=== PATIENT | male | born 1990 | race American Indian/Alaskan Native ===

== ENCOUNTER 2021-04-30 16:20 | Emergency (ER) | payer SELFPAY ==
[2021-04-30 16:46] VITALS: BP 171/102
[2021-04-30] MEDS ORDERED: LIDOCAINE-MPF (1%) 10 MG/1 ML VIAL 5 ML INFILTRATI SCH (17:00)
--- NOTE | 2021-04-30 17:07 | Emergency Department Report ---
ED Male HPI - General Chief complaint: Urogenital-Male Stated complaint: BURNING Time Seen by Provider: 04/30/21 16:55 Source: patient Mode of arrival: Ambulatory Limitations: No Limitations - History of Present Illness Initial comments: pt is a 31-year-old male presents emergency room with dysuria that began a week ago. He states he has some mild low back discomfort. He states he was sexually active and reports at this time he did not use protection. He denies any penile discharge, abdominal pain, nausea, vomiting, diarrhea, urinary frequency, hematuria, urinary retention. No past medical history. no allergies medications. - Related Data Previous Rx's Medication Instructions Recorded Last Taken Type Doxycycline Hyclate [Doxycycline 100 mg PO BID 7 Days #14 tab 04/30/21 Unknown Rx Hyclate TAB] Allergies Allergy/AdvReac Type Severity Reaction Status Date / Time No Known Allergies Allergy Unverified 04/30/21 17:06 ED Review of Systems ROS: Stated complaint: BURNING Other details as noted in HPI Comment: All other systems reviewed and negative ED Past Medical Hx - Past Medical History Previous Medical History?: No - Surgical History Past Surgical History?: No - Medications Home Medications: Home Medications Medication Instructions Recorded Confirmed Last Taken Type Doxycycline Hyclate [Doxycycline 100 mg PO BID 7 Days #14 tab 04/30/21 Unknown Rx Hyclate TAB] ED Physical Exam - General Limitations: No Limitations General appearance: alert, in no apparent distress - Head Head exam: Present: atraumatic, normocephalic - Eye Eye exam: Present: normal appearance - ENT ENT exam: Present: mucous membranes moist - Respiratory Respiratory exam: Present: normal lung sounds bilaterally. Absent: respiratory distress, wheezes, rales, rhonchi, stridor, chest wall tenderness, accessory muscle use, decreased breath sounds, prolonged expiratory - Cardiovascular Cardiovascular Exam: Present: regular rate, normal rhythm, normal heart sounds. Absent: systolic murmur, diastolic murmur, rubs, gallop - GI/Abdominal GI/Abdominal exam: Present: soft, normal bowel sounds. Absent: distended, tenderness, rebound, rigid - Neurological Exam Neurological exam: Present: alert, oriented X3 - Psychiatric Psychiatric exam: Present: normal affect, normal mood - Skin Skin exam: Present: warm, dry, intact ED Course Vital Signs 04/30/21 04/30/21 16:21 17:34 Temperature 98.9 F 98.6 F Pulse Rate 89 90 Respiratory 18 16 Rate Blood Pressure 171/102 [Right] O2 Sat by Pulse 99 100 Oximetry ED Medical Decision Making - Medical Decision Making pt is a 31-year-old male presents emergency room with dysuria that began a week ago. He states he has some mild low back discomfort. He states he was sexually active and reports at this time he did not use protection. He denies any penile discharge, abdominal pain, nausea, vomiting, diarrhea, urinary frequency, hematuria, urinary retention. No past medical history. no allergies medications. Vitals with elevated blood pressure, patient is not having any symptoms related to blood pressure, discussed lifestyle modifications, low- sodium diet, keeping a blood pressure log and following up with her primary care doctor, patient verbalized understanding. Given that patient was sexually active without protection is concerned for STDs patient given ceftriaxone IM and given prescription for doxycycline. Advised patient Please take medication as prescribed. Please follow-up with the clinic or health department or to have full STD panel. Please have any partner tested and treated as well. Avoid sexual intercourse. Return to emergency room for any new or worsening symptoms. Critical care attestation.: If time is entered above; I have spent that time in minutes in the direct care of this critically ill patient, excluding procedure time. ED Disposition Clinical Impression: Dysuria, Concern about STD in male without diagnosis Disposition: 01 HOME / SELF CARE / HOMELESS Is pt being admited?: No Does the pt Need Aspirin: No Condition: Stable Instructions: Dysuria, Safe Sex Additional Instructions: Please take medication as prescribed. Please follow-up with the clinic or health department or to have full STD panel. Please have any partner tested and treated as well. Avoid sexual intercourse. Return to emergency room for any new or worsening symptoms. [employer] Address: [address] [place] [id number] Prescriptions: Doxycycline Hyclate [Doxycycline Hyclate TAB] 100 mg PO BID 7 Days #14 tab Referrals: [facility] [Provider Group] - 2-3 Days [facility] [Outside] - 2-3 Days Time of Disposition: 17:08 Print Language: MARTINIQUAIS
== END 2021-04-30 17:42 | disposition home or self-care (01) ==
LOC: ED 16:20
DX: R30.0 Dysuria (principal); A64 Unspecified sexually transmitted disease
CPT/HCPCS: 96372; 99282; J0696; J3490